=== PATIENT | male | born 1940 | race Caucasian/White ===

== ENCOUNTER 2017-07-01 09:03 | Inpatient (IN) | payer MEDICARE, OTHER ==
[~2017-07-01] VITALS: Ht 193 cm; Wt 112.0 kg
[~2017-07-01 09:03] MED LIST: CENTRUM SILVER1 EAC3 PO; CITRUCEL500 M1 PO; COUMADIN5 M2 PO; COUMADIN7.5 M1 PO; FEOSOL325 M1 PO; FIBERCON625 M2 PO; LEVOTHYROXINE125 MC1 PO; MAXZIDE 75 MG-501 EA PO; NIACIN500 M1 PO; OMEGA 3-6-9 CO400 MG PO; PERCOCET 5-3251 EACH PO; PRILOSEC20 M1 PO; SORINE PO; TOPROL XL50 M1 PO; TRAZODONE HCL50 M1 PO; TYLENOL325 M2 PO; VITAMIN C500 M3 PO; VITAMIN D31000 UNI4 PO
[2017-07-01] MEDS ORDERED: PRINIVIL5 M1 PO (09:44)
[2017-07-01] MEDS ORDERED: COREG6.25 M1 PO ×2 (09:45)
[2017-07-01] MEDS ORDERED: LASIX40 M1 PO (09:45)
[2017-07-01] MEDS ORDERED: PROTONIX40 M2 PO (09:45)
[2017-07-01] MEDS ORDERED: PROZAC40 M1 PO (09:46)
[2017-07-01] MEDS ORDERED: CRANBERRY500 M5 PO (09:46)
[2017-07-01] MEDS ORDERED: COUMADIN5 M2 PO (09:46)
[2017-07-01] MEDS ORDERED: VITAMIN D35000 UNI2 PO (09:46)
[2017-07-01] MEDS ORDERED: VITAMIN C1000 M1 PO (09:48)
[2017-07-01] MEDS ORDERED: FISH OIL OMEGA1 EAC2 PO (09:48)
[2017-07-01] MEDS ORDERED: FERROUS SULFAT324 MG PO (09:48)
[2017-07-01] MEDS ORDERED: LEVOTHYROXINE150 MC3 PO (09:48)
[2017-07-01] MEDS ORDERED: ONE DAILY1 EAC4 PO (09:49)
[2017-07-01] MEDS ORDERED: NIASPAN500 M1 PO (09:49)
[2017-07-01] MEDS ORDERED: ECOTRIN325 M2 PO (09:49)
[2017-07-01] MEDS ORDERED: FIBER625 M2 PO (09:49)
[2017-07-01] MEDS ORDERED: LOPERAMIDE2 M2 PO (09:49)
[2017-07-01] MEDS ORDERED: TART CHERRY CA1 EACH PO (09:49)
[2017-07-01] MEDS ORDERED: NORVASC10 M2 PO (09:50)
[2017-07-01 10:14] LABS: BASO % 0.1 % (0-2); HCT-HEMATOCRIT 36.2 % (36.0-53.5); HGB-HEMOGLOBIN 12.7 gm/dl (13.5-17.0); IMMATURE GRANULOCYTES ABSOLUTE 0.13 tho/cmm (0-0.03); IMMATURE GRANULOCYTES PERCENT 0.5 % (0-0.3); LYMPH % 9.5 % (20-45); LYMPH ABSOLUTE COUNT 2.7 tho/cmm (0.8-4.5); MCH (MEAN CORPUSCULAR HGB) 32.5 pg (28.0-32.0); MCHC MEAN CORPUSCULAR HGB CONC 35.1 % (32.0-36.0); MCV (MEAN CELL VOLUME) 92.6 fl (82.0-96.0); MEAN PLATELET VOLUME 10.1 cmc (9.4-12.4); MONO % 9.1 % (0-12); MONOCYTE ABSOLUTE COUNT 2.5 tho/cmm (0.0-1.2); NEUTROPHIL ABSOLUTE COUNT 22.6 tho/cmm (1.6-8.0); NEUTROPHIL-AUTOMATED 22.6 tho/cmm (1.6-8.0); NEUTROPHILS % 80.8 % (40-80); PLATELET COUNT 140 tho/cmm (150-450); RED BLOOD COUNT 3.91 mil/cmm (4.40-5.70); RED CELL DISTRIBUTION WIDTH 13.6 % (12.4-16.4)
[2017-07-01 10:15] LABS: URINE BILIRUBIN SMALL (NEG); URINE BLOOD LARGE (NEG); URINE GLUCOSE (UA) NEGATIVE (NEG); URINE KETONE SMALL (NEG); URINE LEUKOCYTE ESTERASE POSITIVE (NEG); URINE NITRITE POSITIVE (NEG); URINE PROTEIN MODERATE (NEG)
[2017-07-01 10:15] LABS: INR 2.2 INR (0.9-1.1)
[2017-07-01 10:16] LABS: URINE APPEARANCE HAZY; URINE COLOR BROWN
[2017-07-01 10:22] LABS: URINE BACTERIA 4+; URINE EPITHELIAL CELLS 0-2 /[HPF] (0-10); URINE RBC 20-25 /[HPF] (0-5); URINE WBC 20-25 /[HPF] (0-5)
[2017-07-01 10:26] LABS: ALB/GLOB RATIO 0.8 (0.8-2.0); ALKALINE PHOSPHATASE 73 U/L (33-138); ALT/SGPT 24 U/L (12-78); ANION GAP 11 mmol/L (0-20); AST/SGOT 31 U/L (10-40); BILIRUBIN,TOTAL 2.4 mg/dl (0.0-1.5); BLOOD UREA NITROGEN 22 mg/dl (6-24); CALCIUM 8.7 mg/dl (8.5-10.5); CARBON DIOXIDE-VENOUS 28 mmol/L (22-32); CHLORIDE 104 mmol/l (96-110); CREATININE 1.66 mg/dl (0.60-1.30); GLUCOSE 103 mg/dL (70-110); LIPASE 103 U/L (73-393); POTASSIUM 3.3 mmol/L (3.7-5.1); SODIUM 140 mmol/L (135-145); eGFR VALUE FOR BLACK 46 mL/Min
--- NOTE | 2017-07-01 21:26 | NUR ---
VIRTUAL CARE NOTE: PT. IS IN BED, DENIES PAIN, EXPLAINS ABOUT HIS INCONTINENCE ISSUES AND MEASURING THE URINE. EDUCATION PROVIDED WE DO HAVE SUPPLIES IF HE WOULD LIKE FOR INCONTINENCE AND WE COULD ALSO HAVE A URINAL AT BEDSIDE. ADDITIONAL EDUCATION PROVIDED REGARDING FALL RISK SAFETY REVIEWED. DENIES FURTHER NEEDS AND INSTRUCTED TO CALL FOR FUTURE NEEDS. STATES VERBAL AGREEMENT.
[2017-07-02 05:49] LABS: BASO % 0.1 % (0-2); EOS % 0.2 % (0-7); HCT-HEMATOCRIT 35.2 % (36.0-53.5); HGB-HEMOGLOBIN 11.9 gm/dl (13.5-17.0); IMMATURE GRANULOCYTES ABSOLUTE 0.05 tho/cmm (0-0.03); IMMATURE GRANULOCYTES PERCENT 0.3 % (0-0.3); LYMPH % 12.4 % (20-45); LYMPH ABSOLUTE COUNT 2.3 tho/cmm (0.8-4.5); MCH (MEAN CORPUSCULAR HGB) 31.5 pg (28.0-32.0); MCHC MEAN CORPUSCULAR HGB CONC 33.8 % (32.0-36.0); MCV (MEAN CELL VOLUME) 93.1 fl (82.0-96.0); MEAN PLATELET VOLUME 10.3 cmc (9.4-12.4); MONO % 8.2 % (0-12); MONOCYTE ABSOLUTE COUNT 1.5 tho/cmm (0.0-1.2); NEUTROPHIL ABSOLUTE COUNT 14.4 tho/cmm (1.6-8.0); NEUTROPHIL-AUTOMATED 14.4 tho/cmm (1.6-8.0); NEUTROPHILS % 78.8 % (40-80); PLATELET COUNT 126 tho/cmm (150-450); RED BLOOD COUNT 3.78 mil/cmm (4.40-5.70); RED CELL DISTRIBUTION WIDTH 13.6 % (12.4-16.4); WHITE BLOOD COUNT 18.2 tho/cmm (4.0-10.0)
[2017-07-02 06:10] LABS: ALB/GLOB RATIO 0.7 (0.8-2.0); ALBUMIN 2.7 g/dl (3.5-5.0); ANION GAP 8 mmol/L (0-20); BILIRUBIN,TOTAL 1.3 mg/dl (0.0-1.5); BLOOD UREA NITROGEN 22 mg/dl (6-24); CALCIUM 8.8 mg/dl (8.5-10.5); CARBON DIOXIDE-VENOUS 28 mmol/L (22-32); CHLORIDE 107 mmol/l (96-110); CREATININE 1.55 mg/dl (0.60-1.30); GLUCOSE 97 mg/dL (70-110); SODIUM 139 mmol/L (135-145); eGFR VALUE FOR BLACK 50 mL/Min
[2017-07-02 06:11] LABS: ALKALINE PHOSPHATASE 69 U/L (33-138); ALT/SGPT 24 U/L (12-78); AST/SGOT 33 U/L (10-40); BILIRUBIN,DIRECT 0.4 mg/dl (0.0-0.3); BILIRUBIN,INDIRECT 0.9 mg/dL (0.0-1.0)
--- NOTE | 2017-07-02 21:44 | NUR ---
VIRTUAL CARE NOTE: PT. UP IN HIS CHAIR, STATES IS DOING OKAY, NO PAIN. ASKED IF HE KNEW HIS DOSE OF HIS TRAZADONE AT HOME. PT. UNABLE TO STATE DOSE. EDUCATION GIVEN OF POINTERS IN THE FUTURE HAVE HIS MEDICATIONS, SUPPLEMENTS, SLEEPING MEDS ALL THINGS HE IS TAKING WRITTEN DOWN SO IN THE FUTURE SO WE CAN MAKE SURE WE KNOW WHAT HE IS TAKING, BE ABLE TO HAVE ORDERS FOR HIS NEEDS IF ABLE AND SO IT REDUCES INTERFERENCE TO HIS CARE. THIS NURSE WILL ASK BASKET PERSON PROVIDER FOR SLEEPING MED ORDERS. INSTRUCTED TO CALL FOR FUTURE NEEDS. STATES VERBAL AGREEMENT.
[2017-07-03] MEDS ORDERED: TRAZADONE PO (00:32)
[2017-07-03 06:03] LABS: BASO % 0.2 % (0-2); EOS % 1.9 % (0-7); EOSINOPHIL ABSOLUTE COUNT 0.2 tho/cmm (0.0-0.7); HCT-HEMATOCRIT 34.1 % (36.0-53.5); HGB-HEMOGLOBIN 11.4 gm/dl (13.5-17.0); IMMATURE GRANULOCYTES ABSOLUTE 0.01 tho/cmm (0-0.03); IMMATURE GRANULOCYTES PERCENT 0.1 % (0-0.3); LYMPH % 21.5 % (20-45); LYMPH ABSOLUTE COUNT 1.8 tho/cmm (0.8-4.5); MCH (MEAN CORPUSCULAR HGB) 31.1 pg (28.0-32.0); MCHC MEAN CORPUSCULAR HGB CONC 33.4 % (32.0-36.0); MCV (MEAN CELL VOLUME) 92.9 fl (82.0-96.0); MEAN PLATELET VOLUME 10.2 cmc (9.4-12.4); MONO % 9.2 % (0-12); MONOCYTE ABSOLUTE COUNT 0.8 tho/cmm (0.0-1.2); NEUTROPHIL ABSOLUTE COUNT 5.6 tho/cmm (1.6-8.0); NEUTROPHIL-AUTOMATED 5.6 tho/cmm (1.6-8.0); NEUTROPHILS % 67.1 % (40-80); PLATELET COUNT 138 tho/cmm (150-450); RED BLOOD COUNT 3.67 mil/cmm (4.40-5.70); RED CELL DISTRIBUTION WIDTH 13.5 % (12.4-16.4)
[2017-07-03 06:05] LABS: INR 2.1 INR (0.9-1.1); PROTHROMBIN TIME 25.9 SECONDS (9.0-13.6)
[2017-07-03 06:13] LABS: WHITE BLOOD COUNT 8.3 tho/cmm (4.0-10.0)
[2017-07-03 06:20] LABS: ANION GAP 9 mmol/L (0-20); BLOOD UREA NITROGEN 19 mg/dl (6-24); CALCIUM 8.8 mg/dl (8.5-10.5); CARBON DIOXIDE-VENOUS 28 mmol/L (22-32); CHLORIDE 109 mmol/l (96-110); CREATININE 1.56 mg/dl (0.60-1.30); GLUCOSE 89 mg/dL (70-110); POTASSIUM 3.8 mmol/L (3.7-5.1); SODIUM 142 mmol/L (135-145); eGFR VALUE FOR BLACK 50 mL/Min
[2017-07-03] MEDS ORDERED: VIBRAMYCIN100 M1 PO (10:34)
[2017-07-03] MEDS ORDERED: CULTURELLE1 EAC1 PO (10:35)
--- NOTE | 2017-07-03 11:11 | NUR ---
[facility] DISCHARGE TEACHING-REVIEWED DISMISSAL INSTRUCTIONS,MEDICATIONS,FOLLOWUP APPT AND LABS. PATIENT AND SPOUSE ROCHELLE SUCCESSFULLY DID TEACHBACK. NO FURTHER QUESTIONS OR CONCERNS. ALSO REVIEWED THE NEW MEDICATIONS AND SIDE EFFECTS.
== END 2017-07-03 11:40 | DRG 872 ==
LOC: EDMED 09:03 → EMR2 12:27 → 5WD 14:30
PROVIDERS: Emergency Medicine; Internal Medicine; Nurse Practitioner; ADMIT Family Medicine
DX: A41.9 Sepsis, unspecified organism (principal); N17.9 Acute kidney failure, unspecified; N39.0 Urinary tract infection, site not specified; I48.0 Paroxysmal atrial fibrillation; B96.20 Unspecified Escherichia coli [E. coli] as the cause of diseases classified elsewhere; I12.9 Hypertensive chronic kidney disease with stage 1 through stage 4 chronic kidney disease, or unspecified chronic kidney disease; N18.3 Chronic kidney disease, stage 3 (moderate); E87.6 Hypokalemia; E03.9 Hypothyroidism, unspecified; Z79.01 Long term (current) use of anticoagulants; Z79.82 Long term (current) use of aspirin; Z79.899 Other long term (current) drug therapy
CPT/HCPCS: J0696; J2543; J7030